=== PATIENT | female | born 2000 | race Caucasian/White ===

== ENCOUNTER 2024-12-10 06:16 | Day surgery (SDC) | payer OTHER ==
[~2024-12-10] VITALS: Ht 162.6 cm; Wt 62.8 kg
[2024-12-10] MEDS ORDERED: MIDAZOLAM INJ 2 MG/2 ML VIAL As Ordered ONE (07:07)
[2024-12-10] MEDS ORDERED: ONDANSETRON 4MG 2ML VIAL As Ordered ONE (07:07)
[2024-12-10] MEDS ORDERED: dexAMETHasone 4 MG/ML 1 ML VIAL As Ordered ONE (07:07)
[2024-12-10] MEDS ORDERED: LIDOCAINE 2% 100 MG/5 ML SDV (FOR ANES.) As Ordered ONE (07:07)
[2024-12-10] MEDS ORDERED: ACETAMINOPHEN 1000MG/100ML IV BAG As Ordered ONE (07:08)
[2024-12-10] MEDS ORDERED: dexmedeTOMIDine (4 MCG/ML) 200 MCG/50 ML BTL As Ordered ONE (07:09)
[2024-12-10] MEDS ORDERED: ROCURONIUM BROMIDE 50MG/5ML VIAL As Ordered ONE (07:10)
[2024-12-10] MEDS ORDERED: GLYCOPYRROLATE INJ 0.2 MG/ML 2 ML VIAL As Ordered ONE (07:39)
[2024-12-10] MEDS: LIDOCAINE W/EPINEPHrine 1% 20 ML VIAL As Ordered ONE (07:53)
[2024-12-10] MEDS ORDERED: SUGAMMADEX SODIUM 500 MG/5 ML VIAL As Ordered ONE (07:55)
[2024-12-10] MEDS: METHYLENE BLUE 0.5% (5 MG/ML) 10 ML AMP As Ordered ONE (08:03)
[2024-12-10] MEDS: OXYMETAZOLINE 0.05% NASAL SPRAY As Ordered ONE (08:04)
[2024-12-10] MEDS ORDERED: HYDROMORPHONE HCL 0.5 MG/0.5 ML SYRINGE IV PRN (08:40)
[2024-12-10] MEDS ORDERED: LR 1,000 ML IV SCH (08:40)
[2024-12-10] MEDS ORDERED: diphenhydrAMINE 50 MG/ML VIAL IV PRN (08:40)
[2024-12-10 09:40] VITALS: BP 128/69; TEMP 97.2
[2024-12-10 10:20] VITALS: O2SAT 98
== END 2024-12-10 10:18 | disposition home or self-care (01) ==
LOC: M SDC 06:16
PROVIDERS: ATTEND Otolaryngology
DX: J34.2 Deviated nasal septum (principal); J34.3 Hypertrophy of nasal turbinates; Z88.0 Allergy status to penicillin
CPT/HCPCS: 30140; 30520; 81025; J0131; J1100; J1596; J2250; J2405; J3010; Q9968